=== PATIENT | male | born 1990 | race Caucasian/White ===

== ENCOUNTER 2018-09-25 22:43 | Inpatient (IN) | payer OTHER ==
[~2018-09-25] VITALS: Ht 188 cm; Wt 143.4 kg
[2018-09-25 22:46] VITALS: Ht 188 cm; Wt 143.4 kg
--- NOTE | 2018-09-25 23:42 | NUR ---
PT'S CARE ASSUMED AT THIS TIME.
[2018-09-26 00:18] LABS: CALCIUM 8.5 mg/dL (8.5-10.1); CARBON DIOXIDE 33.2 mmol/L (21-32); CHLORIDE SERUM 107 mmol/L (98-107); GFR1 > 60 mL/min; GLUCOSE SERUM 103 mg/dL (74-106); POTASSIUM SERUM 3.2 mmol/L (3.5-5.1); SODIUM SERUM 147 mmol/L (136-145)
[2018-09-26 00:22] LABS: ALKALINE PHOSPHATASE 66 U/L (46-116); ALT/SGPT 26 U/L (16-63); AST/SGOT 24 U/L (15-37); BILIRUBIN TOTAL 0.8 mg/dL (0.20-1.00); LIPASE 68 IU/L (73-393); TOTAL PROTEIN, SERUM 6.5 g/dL (6.4-8.2)
[2018-09-26 00:23] LABS: ALBUMIN 3.2 g/dL (3.4-5.0)
[2018-09-26 01:22] LABS: PLATELET COUNT 494 x10^3mcL (130-400); RED CELL DISTRIBUTION WIDTH 17.7 % (11.5-14.5)
--- NOTE | 2018-09-26 01:44 | NUR ---
PT BEING ADMITTED. PT AAOX3, RESTING COMFORTABLY IN BED, BREATHING EASY AND UNLABORED. CONTINUES TO DENY PAIN AT THIS TIME. NO OBVIOUS SIGNS OF DISTRESS. WILL CONTINUE TO MONITOR. PT ENCOURAGED TO ASK FOR PAIN MEDS WHEN NEEDED. PT AGREED AND VERBALIZED UNDERSTANDING.
[2018-09-26 01:49] LABS: ATYPICAL LYMPH 30 %; BAND NEUTROPHIL 50 % (0-10); SEGMENTED NEUTROPHILS 20 % (37-75); rbc morphology (normal/abnorm) ABNORMAL (NORMAL)
[2018-09-26 01:50] LABS: PATH REVIEW for HEMA YES; PLATELET MORPHOLOGY LARGE PLATELET SEEN
--- NOTE | 2018-09-26 02:34 | NUR ---
PT ADMITTED (MED SURG) - REPORT CALLED TO [facility]TER[facility]. OPPORTUNITY GIVEN TO ASK QUESTIONS. PT BEING TRANSPORTED TO FLOOR BY EMT. PT AAOX3, VSS, BREATHING EASY AND UNLABORED AND IN NO OBVIOUS DISTRESS AT THIS TIME. PT'S CARE COMPLETED BY THIS RN AT THIS TIME.
[2018-09-26 02:51] LABS: MAGNESIUM 2.2 mg/dL (1.8-2.4); PHOSPHOROUS 4.8 mg/dL (2.5-4.9)
[2018-09-26 02:52] LABS: CHOLESTEROL/HDL RATIO 4.7
[2018-09-26 02:56] LABS: T3 TOTAL 1.1 ng/mL
[2018-09-26 02:59] LABS: FREE T4 1.41 ng/dL (0.76-1.46); FREE THYROXINE INDEX 3.4 ug/dL (1.4-4.5); T4(THYROXINE) 8.9 ug/dL (4.7-13.3)
[2018-09-26 03:28] VITALS: BP 130/70
--- NOTE | 2018-09-26 04:00 | NUR ---
ADMITTED A PATIENT TO THE FLOOR VIA W/C AND WAS ACCOMPANIED BY THE HOSRITAL PERSONNEL,PT WAS RECIEVED TO THE BED MADE COMFORTABLE IN BED.ON INITAIL ASSESSMENT PATIENT IS WEEL BUILT AAO REG RESP NO SOB R/A SAT 97%,ABDO IS SOFT OBSESE WITH ACTIVE BOWEL SOUNDS,PT HAD HL TO THE LT AC SITE PATENT AND INTACT WITH FLUIDS INFUSING WITH SITE PATENT AND INTACT,PT WAS ORIENTED TO THE ROOM BED CONTROL AND THE BATHROOM,KEPT CLEAN AND DRY TO TOUCH AND WITH CALL LIGHT EASY REACHED,KEPT CLEAN AND DRY TO TOUCH,WILL CONTINUE TO MONITOR.
--- NOTE | 2018-09-26 06:18 | NUR ---
PT RESTING AT THIS TIME,NO CHANGE AT THIS TIME AND WILL CONTINUE TO MONITOR.
[2018-09-26 06:30] LABS: CALCIUM 8.3 mg/dL (8.5-10.1); CARBON DIOXIDE 32.3 mmol/L (21-32); CHLORIDE SERUM 108 mmol/L (98-107); GFR1 > 60 mL/min; GLUCOSE SERUM 98 mg/dL (74-106); MAGNESIUM 2.1 mg/dL (1.8-2.4); PHOSPHOROUS 4.3 mg/dL (2.5-4.9); SODIUM SERUM 147 mmol/L (136-145)
[2018-09-26 06:50] LABS: POTASSIUM SERUM 2.9 mmol/L (3.5-5.1)
--- NOTE | 2018-09-26 07:05 | NUR ---
RECEIVED BEDSIDE REPORT. PATIENT RESTING IN BED COMFORTABLY A/O X4, CLEAR SPEECH, NO NEURO DEFICITS NOTED. DENIES ANY CHEST PAIN OR SOB, NO DISTRESS NOTED. IV TO RAC INTACT INFUSING NS AT 100 ML/HR FREE FROM REDNESS AND INFILTRATION. PATIENT IS CALM WITH CARE. INSTRUCTED TO CALL FOR ASSISTANCE IF NEEDED, SAFETY PRECAUTIONS MAINTAINED. WILL MONITOR.
--- NOTE | 2018-09-26 07:26 | NUR ---
REPORTED THE K= LEVEL 2.9 TO THE AM NURSE TO FOLLOW UP.
[2018-09-26 09:04] VITALS: BP 142/71
--- NOTE | 2018-09-26 09:15 | NUR ---
PATIENT RESTING IN BED COMFORTABLY NO DISTRESS NOTED. DUE MEDICATION GIVEN, ALL NEEDS ATTENDED TO. SAFETY PRECAUTIONS MAINTAINED. WILL MONITOR.
--- NOTE | 2018-09-26 10:54 | NUR ---
PATIENT SEEN AMBULATING IN THE ROOM GAIT STEADY, NO DISTRESS NOTED. ALL NEEDS ATTENDED TO, SAFETY PRECAUTIONS MAINTAINED. WILL MONITOR.
--- NOTE | 2018-09-26 12:36 | NUR ---
PATIENT SITTING UP IN BED EATING LUNCH TOLERATING WELL, NO DISTRESS NOTED. WILL MONITOR.
[2018-09-26 13:14] LABS: PLATELET COUNT 483 x10^3mcL (130-400); RED CELL DISTRIBUTION WIDTH 17.7 % (11.5-14.5)
[2018-09-26 13:20] LABS: ATYPICAL LYMPH 4 %; BAND NEUTROPHIL 22 % (0-10); BASOPHIL 0 % (0-2); MONOCYTE 15 % (0-7); PLATELET MORPHOLOGY PLATELETS INCREASED; SEGMENTED NEUTROPHILS 38 % (37-75)
--- NOTE | 2018-09-26 13:20 | NUR ---
DR. AIKEN PAGED REGARDING RESULTS: WBC 261.1. WILL WAIT FOR CALL BACK.
[2018-09-26 13:21] LABS: rbc morphology (normal/abnorm) ABNORMAL (NORMAL)
--- NOTE | 2018-09-26 14:10 | NUR ---
IV TO RAC LEAKING, REMOVED CATH INTACT. NEW IV PLACED TO RH, 20 GAUGE, GOOD BLOOD RETURN FLUSHED WELL WITH 10 ML NS. PATIENT TOLERATED WELL, AND IVF RESUMED. ALL NEEDS ATTENDED TO, SAFETY PRECAUTIONS MAINTAINED. WILL MONITOR.
--- NOTE | 2018-09-26 15:10 | NUR ---
PATIENT RESTING IN BED COMFORTALY USING HIS TABLET, NO DISTRESS NOTED. ALL NEEDS ATTENDED TO. SAFETY PRECAUTIONS MAINTAINED. WILL MONITOR.
[2018-09-26 15:28] LABS: microscopic required? NO
[2018-09-26 15:53] LABS: urine erythrocyte NEGATIVE (NEGATIVE)
--- NOTE | 2018-09-26 16:18 | NUR ---
SPOKE WITH KARYN EASON PATIENT ACCEPTED TO [facility]: MED-SURG C496, DR. BRITO TO FOLLOW. NURSE TO CALL REPORT TO [phone]. ALL QUESTIONS AND CONCERNS ADDRESSED. CHARGE NURSE RAIN MADE AWARE.
[2018-09-26 16:26] LABS: AMPHETAMINE QUAL UR NONE DETECTED (See below)
[2018-09-26 16:38] VITALS: BP 148/76
[2018-09-26 17:36] VITALS: BP 153/76
--- NOTE | 2018-09-26 17:45 | NUR ---
PATIENT SITTING UP IN BED EATING DINNER, NO DISTRESS NOTED. PATIENT AWARE HE IS BEING TRANSFERED TO [facility] TODAY WITH AUTO TRANSMISSION SPECIALIST TIME SCHEDULED FOR 1829, ALL QUESTIONS AND CONCERNS ADDRESSED. SAFETY PRECAUTIONS MAINTAINED.
--- NOTE | 2018-09-26 17:58 | NUR ---
REPORT GIVEN TO MARILEE AT [facility]. ALL QUESTIONS ANNSWERED. ATTENDING NURSE LI MADE AWARE.
--- NOTE | 2018-09-26 18:43 | NUR ---
[facility] AT BEDSIDE, REPORT GIVEN ALL QUESTIONS AND CONCERNS ADDRESSED. PATIENT TRANSPORTED TO [facility]IA GURNEY. IV TO RH H/L INTACT AND PATENT. ALL PERSONEL BELONGINGS SENT WITH PATIENT.
== END 2018-09-26 18:45 | disposition short-term general hospital (02) | DRG 663 ==
LOC: ED 22:43 → MU 09-26 02:08
PROVIDERS: Emergency Medicine; General Practice; ADMIT Internal Medicine
DX: R16.1 Splenomegaly, not elsewhere classified (principal); E87.0 Hyperosmolality and hypernatremia; D68.69 Other thrombophilia; E44.1 Mild protein-calorie malnutrition; Z68.41 Body mass index [BMI] 40.0-44.9, adult; D72.829 Elevated white blood cell count, unspecified; D47.3 Essential (hemorrhagic) thrombocythemia; E87.6 Hypokalemia; E78.5 Hyperlipidemia, unspecified; E66.9 Obesity, unspecified; Z80.3 Family history of malignant neoplasm of breast; Z80.1 Family history of malignant neoplasm of trachea, bronchus and lung
CPT/HCPCS: 84439; 85060; G0378; J3480; J7030; Q0092